=== PATIENT | female | born 1975 | race Caucasian/White ===

== ENCOUNTER 2024-07-08 15:19 | Emergency (ER) | payer OTHER ==
[~2024-07-08] VITALS: Ht 152.4 cm; Wt 59.1 kg
[2024-07-08] MEDS ORDERED: LISI10TA24 PO (15:31)
[2024-07-08 15:32] VITALS: BP 138/87; PULSE 78; RESP 18; TEMP 98; O2SAT 98
== END 2024-07-08 16:06 | disposition home or self-care (01) ==
LOC: EMS 15:19
DX: S60.222A Contusion of left hand, initial encounter (principal); I10 Essential (primary) hypertension; Z79.899 Other long term (current) drug therapy; W22.8XXA Striking against or struck by other objects, initial encounter; Y93.89 Activity, other specified; Y92.89 Other specified places as the place of occurrence of the external cause; Y99.8 Other external cause status
CPT/HCPCS: 99281; Z7502

== ENCOUNTER 2025-02-11 17:47 | Emergency (ER) | payer OTHER ==
[~2025-02-11] VITALS: Ht 147.3 cm; Wt 68.2 kg
[~2025-02-11 17:47] MED LIST: LISI10TA24 PO
[2025-02-11 18:04] VITALS: BP 168/88; PULSE 93; RESP 18; TEMP 98.2; O2SAT 99
[2025-02-11] MEDS: ACETAMINOPHEN 325 MG TABLET PO ONE (22:16)
== END 2025-02-11 23:30 | disposition home or self-care (01) ==
LOC: EMS 17:48
DX: S06.0X0A Concussion without loss of consciousness, initial encounter (principal); S16.1XXA Strain of muscle, fascia and tendon at neck level, initial encounter; I10 Essential (primary) hypertension; Z79.899 Other long term (current) drug therapy; W22.8XXA Striking against or struck by other objects, initial encounter; Y93.89 Activity, other specified; Y92.511 Restaurant or cafe as the place of occurrence of the external cause; Y99.0 Civilian activity done for income or pay
CPT/HCPCS: 72040; 99283